=== PATIENT | male | born 1960 | race Caucasian/White ===

== ENCOUNTER 2017-04-22 20:10 | Emergency (ER) | payer OTHER ==
[~2017-04-22] VITALS: Ht 182.9 cm; Wt 87.0 kg
[~2017-04-22 20:10] MED LIST: ASPIRIN81 M1 PO; CITALOPRAM HBR20 MG PO; Ecotrin PO; NABUMETONE500 MG PO; NAPROSYN500 MG PO; PriLOSEC PO; TYLENOL PM1 CAPLET PO; VALIUM5 MG PO
[2017-04-22 22:28] VITALS: BP 134/94
[2017-04-26] MEDS ORDERED: CELEXA20 MG PO (12:00)
[2017-04-26] MEDS ORDERED: PERCOCET 5/31 TABLET PO (12:01)
[2017-04-26] MEDS ORDERED: ERGOCALCIF50000 UNIT PO (12:01)
[2017-04-26] MEDS ORDERED: SEROQUEL100 MG PO (12:01)
[2017-04-26] MEDS ORDERED: NAPROXEN500 MG PO (12:01)
[2017-04-26] MEDS ORDERED: AMBIEN10 MG PO (12:01)
== END 2017-04-22 22:51 | disposition home or self-care (01) ==
LOC: EME 20:10 → EXP 20:10
DX: H57.8 Other specified disorders of eye and adnexa (principal); F17.200 Nicotine dependence, unspecified, uncomplicated
CPT/HCPCS: 99281; 99284

== ENCOUNTER 2017-12-15 14:46 | Emergency (ER) | payer OTHER ==
[~2017-12-15] VITALS: Ht 182.9 cm; Wt 83.0 kg
[~2017-12-15 14:46] MED LIST changes: +AMBIEN10 MG PO; +CELEXA20 MG PO; +ERGOCALCIF50000 UNIT PO; +NAPROXEN500 MG PO; +PERCOCET 5/31 TABLET PO; +SEROQUEL100 MG PO
[2017-12-15 15:54] LABS: HEMATOCRIT 50.7 % (38.0-50.0); HEMOGLOBIN 17.2 G/DL (12.5-16.6); MCH 31.4 PG (29.0-34.0); MCHC 33.9 G/DL (30.0-36.0); MCV 92.7 FL (86-99); PLATELET COUNT 300 K/uL (156-360); RBC DIS.WIDTH-CV 12.9 % (11.8-14.6); RBC DIS.WIDTH-SD 44.2 % (39-53); RED BLOOD COUNT 5.47 M/uL (4.00-5.50); WHITE BLOOD COUNT 11.4 K/uL (4.1-10.2)
[2017-12-15 16:08] LABS: CHLORIDE 104 mEq/L (99-109); POTASSIUM 4.9 mEq/L (3.7-5.4); SODIUM 141 mEq/L (136-147)
[2017-12-15 16:09] LABS: GLUCOSE 96 mg/dL (70-99)
[2017-12-15 16:13] LABS: GFR ESTIMATE (CALCULATED) > 59 mL/min/ (58.99-99999)
[2017-12-15 16:14] LABS: UREA NITROGEN (BUN) 14 mg/dL (9-23)
[2017-12-15 17:06] LABS: APPEARANCE CLEAR ((CLEAR)); BILIRUBIN SMALL; BLOOD NEGATIVE; COLOR YELLOW ((YELLOW)); GLUCOSE (STRIP) NEGATIVE; KETONES NEGATIVE; LEUKOCYTES NEGATIVE; NITRITE NEGATIVE; PROTEIN (STRIP) NEGATIVE; SPECIFIC GRAVITY 1.016 (1.000-1.030); UCUL ADDED? NO; UROBILINOGEN 0.2 MG/DL (0.2-1.0)
[2017-12-15 17:15] VITALS: BP 126/68
[2017-12-15] MEDS ORDERED: MEDROL DOSEPAK4 MG PO (17:22)
[2017-12-15] MEDS ORDERED: SKELAXIN800 MG PO (17:22)
[2017-12-15] MEDS ORDERED: VOLTAREN 1% GE100 GM TP (17:22)
== END 2017-12-15 17:15 | disposition home or self-care (01) ==
LOC: EME 14:46 → RME 14:46
PROVIDERS: Nurse Practitioner Family
DX: M54.5 Low back pain (principal); R10.9 Unspecified abdominal pain; M51.37 Other intervertebral disc degeneration, lumbosacral region; Z90.49 Acquired absence of other specified parts of digestive tract; F17.200 Nicotine dependence, unspecified, uncomplicated
CPT/HCPCS: 74176; 80048; 81003; 85027; 99281; 99284